=== PATIENT | male | born 1955 | race Caucasian/White ===

== ENCOUNTER 2018-02-10 08:21 | Day surgery (SDC) | payer OTHER ==
[2018-02-09 14:43] VITALS: BMI 31.5
[2018-02-10] MEDS ORDERED: PROPOFOL 20 ML ONE ×3 (09:12)
[2018-02-10] MEDS ORDERED: LIDOCAINE HCL 2% JELLY 10 ML CARTRIDGE ONE (09:52)
[2018-02-10] MEDS ORDERED: LIDOCAINE HCL 2% JELLY 10 ML CARTRIDGE TP ONE (09:52)
[2018-02-10] MEDS ORDERED: ETOMIDATE 20 MG/10 ML AMPUL IVPUSH ONE (10:04)
[2018-02-10 10:07] VITALS: TEMP 97.7
[2018-02-10 11:27] VITALS: BP 113/68; PULSE 85
--- NOTE | 2018-02-11 12:26 | PATH ---
Surgical Pathology Report Patient Name: IRAM MCKEON [facility]. Rec. #: [id number] /Age/Gender: 1955 (Age: 62) / M Account: [id number] Location: U-ENDOSCOPY Taken: 02/10/2018 Received: 02/10/2018 Reported: 02/11/2018 Physicians: Chano Escobar M.D. Specimen(s) Received A: BX CECUM B: POLYP TRANSVERSE COLON Clinical History Preoperative diagnosis: Rectal bleeding, history of colon polyps Postoperative diagnosis: Colon polyps, hemorrhoids, diverticulosis Final Diagnosis A. COLON, CECUM AND RIGHT, BIOPSY: MULTIPLE PORTIONS OF TUBULAR ADENOMA. B. COLON, TRANSVERSE, POLYPECTOMY: TUBULAR ADENOMA. Comment: Recommend correlation with clinical findings and follow up as clinically indicated. Electronically Signed Sandeep Junior M.D. Gross Description A. Received in formalin, labeled "biopsy polyps cecum and right colon" are 4 tierney, irregular portions of soft tissue ranging from 0.1-0.4 cm. in greatest dimension. The specimens are submitted in toto in one cassette. B. Received in formalin, labeled "polyp transverse colon" is a tierney, irregular portion of soft tissue measuring 0.5 cm. in greatest dimension. The specimen is submitted in toto in one cassette. 02/10/2018 saudi02/10/2018
== END 2018-02-10 11:27 | disposition home or self-care (01) ==
LOC: JASU-ENDO 08:21
PROVIDERS: ATTEND Internal Medicine Gastroenterology
PROC: 0DBL8ZX Excision of Transverse Colon, Via Natural or Artificial Opening Endoscopic, Diagnostic (ICD-10-PCS; 2018-02-10)
PROC: 0DBH8ZX Excision of Cecum, Via Natural or Artificial Opening Endoscopic, Diagnostic (ICD-10-PCS; 2018-02-10)
PROC: 0DBF8ZX Excision of Right Large Intestine, Via Natural or Artificial Opening Endoscopic, Diagnostic (ICD-10-PCS; 2018-02-10)
PROC: 06LY4CC Occlusion of Hemorrhoidal Plexus with Extraluminal Device, Percutaneous Endoscopic Approach (ICD-10-PCS; principal; 2018-02-10 09:15)
DX: Z12.11 Encounter for screening for malignant neoplasm of colon (principal); Z86.010 Personal history of colon polyps; D12.3 Benign neoplasm of transverse colon; D12.0 Benign neoplasm of cecum; D12.6 Benign neoplasm of colon, unspecified; K64.8 Other hemorrhoids; K57.30 Diverticulosis of large intestine without perforation or abscess without bleeding
CPT/HCPCS: 88305-TC

== ENCOUNTER 2022-03-07 04:38 | Day surgery (SDC) | payer OTHER ==
[2022-03-04 12:41] VITALS: BMI 32.3
[2022-03-07 09:21] VITALS: TEMP 98
[2022-03-07 09:48] VITALS: BP 96/51; PULSE 97
== END 2022-03-07 10:04 | disposition home or self-care (01) ==
LOC: JASU-ENDO 04:38
PROVIDERS: ATTEND Internal Medicine Gastroenterology
PROC: 0DBH8ZX Excision of Cecum, Via Natural or Artificial Opening Endoscopic, Diagnostic (ICD-10-PCS; 2022-03-07)
PROC: 0DBP8ZX Excision of Rectum, Via Natural or Artificial Opening Endoscopic, Diagnostic (ICD-10-PCS; principal; 2022-03-07 09:00)
DX: Z12.11 Encounter for screening for malignant neoplasm of colon (principal); D12.8 Benign neoplasm of rectum; D12.0 Benign neoplasm of cecum; K64.8 Other hemorrhoids; Z86.010 Personal history of colon polyps; I10 Essential (primary) hypertension; I48.91 Unspecified atrial fibrillation
CPT/HCPCS: 88305-TC